=== PATIENT | male | born 1985 | race Two or more races ===

== ENCOUNTER 2017-06-13 10:28 | Emergency (ER) | payer OTHER ==
[2017-06-13 10:31] VITALS: BP 149/76
[2017-06-13] MEDS ORDERED: DEXAMETHASONE SOD PHOS INJ 10 MG/1 ML VIAL IM ONE (10:55)
--- NOTE | 2017-06-13 11:02 | ER Document Report ---
HPI - HPI Pain Level: 4 Notes: Patient is a 32-year-old male presents the ED complaining of right low back pain that he noticed while lifting yesterday. Patient states that the pain increases with twisting and flexion of the spine. The pain does not radiate. He has used Lidoderm patch, ibuprofen, ice with minimal relief. He denies any loss of control bowel or bladder, urinary retention, radiculitis. Not moving does help the pain. Denies any drug allergies. Denies any daily medications. Denies any significant past medical history. Patient does smoke but denies any illicit drug use. Denies any recent injections or procedures to his lower back. Denies any fever, headache, URI, sore throat, chest pain, palpitations, syncope, cough, shortness of breath, dyspnea, wheeze, abdominal pain, nausea/ vomiting/diarrhea, dysuria, hematuria, other joint pains, or rash. Denies sick contacts/recent travel/recent illness. No saddle anesthesia. - ROS Notes: REVIEW OF SYSTEMS: CONSTITUTIONAL : Denies fever, chills, or sweats. Denies recent illness. EENT: Denies eye, ear, throat, or mouth pain or symptoms. Denies nasal or sinus congestion or discharge. Denies throat, tongue, or mouth swelling or difficulty swallowing. CARDIOVASCULAR: Denies chest pain. Denies palpitations or racing or irregular heart beat. Denies ankle edema. RESPIRATORY: Denies cough, cold, or chest congestion. Denies shortness of breath, difficulty breathing, or wheezing. GASTROINTESTINAL: Denies abdominal pain or distention. Denies nausea, vomiting , or diarrhea. Denies blood in vomitus, stools, or per rectum. Denies black, tarry stools. Denies constipation. GENITOURINARY: Denies difficulty urinating, painful urination, burning, frequency, blood in urine, or discharge. MUSCULOSKELETAL: see hpi SKIN: Denies rash, lesions or sores. NEUROLOGICAL: Denies confusion or altered mental status. Denies passing out or loss of consciousness. Denies dizziness or lightheadedness. Denies headache. Denies weakness or paralysis or loss of use of either side. Denies problems with gait or speech. Denies sensory loss, numbness, or tingling. Denies seizures. PSYCHIATRIC: Denies anxiety or stress. Denies depression, suicidal ideation, or homicidal ideation. ALL OTHER SYSTEMS REVIEWED AND NEGATIVE. Dictation was performed using [employer] voice recognition software - DERM Skin Color: Normal Past Medical History - Social History Smoking Status: Current Every Day Smoker Chew tobacco use (# tins/day): No Family History: None Patient has suicidal ideation: No Patient has homicidal ideation: No Neurological Medical History: Reports: Hx Migraine Renal/ Medical History: Denies: Hx Peritoneal Dialysis Past Surgical History: Reports: Hx Oral Surgery, Hx Orthopedic Surgery - back - Immunizations Immunizations up to date: Yes Hx Diphtheria, Pertussis, Tetanus Vaccination: Yes Vertical Provider Document - CONSTITUTIONAL Agree With Documented VS: Yes Notes: PHYSICAL EXAMINATION: GENERAL: Well-appearing, well-nourished and in no acute distress. NECK: Normal range of motion, supple without lymphadenopathy LUNGS: Breath sounds clear to auscultation bilaterally and equal. No wheezes rales or rhonchi. HEART: Regular rate and rhythm without murmurs, rubs, gallops. ABDOMEN: Soft, nontender, nondistended abdomen. No guarding, no rebound. No masses appreciated. Normal bowel sounds present. No CVA tenderness bilaterally. No pulsatile mass Musculoskeletal: LE b/l: FROM to passive/active. Strength 5+/5. Back: FROM to passive/active. Strength 5+/5. SLR negative b/l. No deformity , ecchymosis, abrasion/laceration noted. + tenderness to soft tissue rt L- paraspinal. + mild muscle spasming. No vertebral point tenderness. Extremities: No cyanosis, clubbing, or edema b/l. Peripheral pulses 2+. Capillary refill less than 3 seconds. NEUROLOGICAL: Normal speech, normal gait. Normal sensory, motor exams. Reflexes 2+ b/l LE. PSYCH: Normal mood, normal affect. SKIN: Warm, Dry, normal turgor, no rashes or lesions noted. - INFECTION CONTROL TRAVEL OUTSIDE OF THE [place] IN LAST 30 DAYS: No - RESPIRATORY O2 Sat by Pulse Oximetry: 98 Course - Re-evaluation Re-evalutation: 06/13/17 11:00 Patient is an afebrile, well-hydrated, 32-year-old male presents the ED with right lower back pain, suspect back strain and muscle spasming. Vitals are stable. PE otherwise unremarkable for any focal neurological deficits. Low health risk factors for abscess/infection. Low suspicion for any expanding/ ruptured AAA, cauda equina syndrome, epidural mass lesion, abscess, herniated disc causing severe spinal stenosis, meningitis. No imaging warranted at this time based on H&P. At around 10 mg given IM today. I will send him home with a prescription for Voltaren gel and Valium to use as directed. Conservative measures otherwise for symptoms. Muscle relaxer precautions reviewed. Recheck with your PCM in 2-3 days. Return to the ED with any worsening/concerning symptoms as reviewed in discharge. Patient is in agreement. - Vital Signs Vital signs: Temp Pulse Resp BP Pulse Ox 98.3 F 92 18 149/76 H 98 06/13/17 10:31 06/13/17 10:31 06/13/17 10:31 06/13/17 10:31 06/13/17 10:31 Discharge - Discharge Clinical Impression: Low back strain Qualifiers: Encounter type: initial encounter Qualified Code(s): S39.012A - Strain of muscle, fascia and tendon of lower back, initial encounter Condition: Stable Disposition: HOME, SELF-CARE Instructions: Ice Packs ([facility]), Low Back Pain ([facility]), Muscle Strain ([facility]), Warm Packs ([facility]), Muscle Relaxers ([facility]) Additional Instructions: Rest Ice Tylenol/ibuprofen as needed Light stretches daily Strength exercises as able Moist heat and massage may help F/u with your PCP in 2-3 days for a recheck Consider consult(s) with Orthopedics, physical therapy for ongoing/worsening symptoms Return to the ED with any worsening symptoms and/or development of fever, headache, chest pain, palpitations, syncope, shortness of breath, trouble breathing, abdominal pain, n/v/d, blood in stool/urine, loss of control of bowel /bladder, urinary retention, muscle weakness/paralysis, numbness/tingling, or other worsening symptoms that are concerning to you. Prescriptions: Diazepam [Valium 5 mg Tablet] 5 mg PO TID PRN #10 tablet PRN Reason: Diclofenac Sodium [Voltaren] 4 gm TP QID PRN #100 gel..gm. PRN Reason: Forms: Elevated Blood Pressure, Smoking Cessation Education Referrals: [facility] ([facility] [Provider Group] - Follow up as needed
== END 2017-06-13 11:12 | disposition home or self-care (01) ==
LOC: ER 10:28
DX: S39.012A Strain of muscle, fascia and tendon of lower back, initial encounter (principal); M54.5 Low back pain; Z79.899 Other long term (current) drug therapy; F17.200 Nicotine dependence, unspecified, uncomplicated; X58.XXXA Exposure to other specified factors, initial encounter
CPT/HCPCS: 99283; 96372; J1100